=== PATIENT | male | born 1995 | race Caucasian/White ===

== ENCOUNTER 2016-07-27 00:54 | Emergency (ER) | payer BC, SELFPAY ==
[2016-07-27 01:05] VITALS: BP 137/89
--- NOTE | 2016-07-27 01:21 | EDM.PDOC ---
ED HPI GENERAL MEDICAL PROBLEM - General Chief Complaint: Drug or Alcohol Abuse Stated Complaint: INTOXICATED Time Seen by Provider: 07/27/16 01:19 - History of Present Illness INITIAL COMMENTS - FREE TEXT/NARRATIVE: 21-year-old male brought in by a friend of his because he's not acting normal. The patient has been drinking he took 2 Xanax and he's been smoking some marijuana this evening. According to the friend the patient has fallen a couple times and bumped his head and he's just not been himself tonight. The patient's friend is concerned about continued drug and alcohol abuse. He's been using cocaine. There is no history of methamphetamine use however the patient is on Adderall and has been taking this as directed. - Related Data Allergies Allergy/AdvReac Type Severity Reaction Status Date / Time No Known Allergies Allergy Verified 07/27/16 01:05 Home Meds: Home Meds Dextroamphetamine/Amphetamine [Adderall 20 mg Tablet] 20 mg PO BID 07/27/16 [ History] Past Medical History Psychiatric History: Reports: ADHD Social & Family History - Family History Family Medical History: Noncontributory - Tobacco Use Smoking Status *Q: Never Smoker Second Hand Smoke Exposure: No - Alcohol Use Days Per Week of Alcohol Use: 5 Number of Drinks Per Day: 10 Total Drinks Per Week: 50 - Recreational Drug Use Recreational Drug Use: Yes Recreational Drug Type: Reports: Marijuana/Hashish ED ROS GENERAL - Review of Systems Review Of Systems: See Below Constitutional: Reports: No Symptoms HEENT: Reports: No Symptoms Respiratory: Reports: No Symptoms Cardiovascular: Reports: No Symptoms GI/Abdominal: Denies: Abdominal Pain, Constipation, Diarrhea, Nausea, Vomiting : Reports: No Symptoms Musculoskeletal: Reports: No Symptoms Skin: Reports: No Symptoms Neurological: Reports: No Symptoms Psychiatric: Reports: No Symptoms. Denies: Hallucinations, Homicidal Ideation, Mood Lability, Suicidal Ideation ED EXAM, GENERAL - Physical Exam Exam: See Below Exam Limited By: No Limitations General Appearance: Alert, Other (He is intoxicated answers questions) Eye Exam: Bilateral Eye: Normal Inspection, PERRL Ears: Normal External Exam, Normal Canal, Hearing Grossly Normal, Normal TMs Nose: Normal Inspection, Normal Mucosa, No Blood Throat/Mouth: Normal Inspection, Normal Lips, Normal Gums, Normal Oropharynx, Normal Voice, No Airway Compromise Head: Atraumatic, Normocephalic Neck: Normal Inspection Respiratory/Chest: No Respiratory Distress, Lungs Clear, Normal Breath Sounds Cardiovascular: Regular Rate, Rhythm, No Edema, No Murmur GI/Abdominal: Normal Bowel Sounds, Soft, Non-Tender, No Organomegaly, No Distention, No Abnormal Bruit, No Mass Psychiatric: Other (Denies suicidal thoughts or intent). No: Anxious, Depressed Mood Course - Vital Signs Last Recorded V/S: Last Vital Signs Temp 36.0 C 07/27/16 01:01 Pulse 102 H 07/27/16 01:01 Resp 14 07/27/16 01:01 BP 137/89 07/27/16 01:01 Pulse Ox 97 07/27/16 01:01 - Orders/Labs/Meds Orders: Active Orders 24 hr Category Date Time Status Head wo Cont [CT] Stat Exams 07/27/16 01:30 Taken Labs: Laboratory Tests 07/27/16 07/27/16 07/27/16 Range/Units 01:24 01:24 01:40 WBC 9.22 H (4.23-9.07) K/mm3 RBC 5.36 (4.63-6.08) M/mm3 Hgb 15.8 (13.7-17.5) gm/L Hct 46.4 (40.1-51.0) % MCV 86.6 (79.0-92.2) fl MCH 29.5 (25.7-32.2) pg MCHC 34.1 (32.2-35.5) g/dl RDW Std Deviation 39.0 (35.1-43.9) fL Plt Count 309 (163-337) K/mm3 MPV 10.2 (9.4-12.3) fl Neutrophils % (Manual) 68 H (40-60) % Band Neutrophils % 0 (0-10) % Lymphocytes % (Manual) 24 (20-40) % Atypical Lymphs % 0 % Monocytes % (Manual) 1 L (2-10) % Eosinophils % (Manual) 6 (0.8-7.0) % Basophils % (Manual) 1 (0.2-1.2) Platelet Estimate Adequate Plt Morphology Comment Normal RBC Morph Comment Normal Sodium (136-145) mEq/L Potassium (3.5-5.1) mEq/L Chloride (98-107) mEq/L Carbon Dioxide (21-32) mEq/L Anion Gap (5-15) BUN (7-18) mg/dL Creatinine (0.7-1.3) mg/dL Est Cr Clr Drug Dosing mL/min Estimated GFR (MDRD) (>60) mL/min BUN/Creatinine Ratio (14-18) Glucose (74-106) mg/dL Calcium (8.5-10.1) mg/dL Total Bilirubin (0.2-1.0) mg/dL AST (15-37) U/L ALT (16-63) U/L Alkaline Phosphatase (46-116) U/L Total Protein (6.4-8.2) g/dl Albumin (3.4-5.0) g/dl Globulin gm/dL Albumin/Globulin Ratio (1-2) Urine Color Yellow (Yellow) Urine Appearance Clear (Clear) Urine pH 6.5 (5.0-8.0) Ur Specific [place] 1.010 (1.005-1.030) Urine Protein Negative (Negative) Urine Glucose (UA) Negative (Negative) Urine Ketones Negative (Negative) Urine Occult Blood Negative (Negative) Urine Nitrite Negative (Negative) Urine Bilirubin Negative (Negative) Urine Urobilinogen 0.2 (0.2-1.0) Ur Leukocyte Esterase Negative (Negative) Urine RBC Not seen (0-5) /hpf Urine WBC 0-5 (0-5) /hpf Ur Epithelial Cells 0-5 (0-5) /hpf Urine Bacteria Not seen (FEW) /hpf Urine Mucus Not seen (FEW) /hpf Urine Opiates Screen Negative (NEGATIVE) Ur Buprenorphine Scrn Negative (NEGATIVE) Ur Oxycodone Screen Negative (NEGATIVE) Urine Methadone Screen Negative (NEGATIVE) Ur Propoxyphene Screen Negative (NEGATIVE) Ur Barbiturates Screen Negative (NEGATIVE) Ur Tricyclics Screen Negative (NEGATIVE) Ur Phencyclidine Scrn Negative (NEGATIVE) Ur Amphetamine Screen Presumptive positive H (NEGATIVE) U Methamphetamines Scrn Negative (NEGATIVE) U Benzodiazepines Scrn Presumptive positive H (NEGATIVE) U Cocaine Metab Screen Presumptive positive H (NEGATIVE) U Marijuana (THC) Screen Presumptive positive H (NEGATIVE) Ethyl Alcohol (0.00) gm% 07/27/16 Range/Units 01:40 WBC (4.23-9.07) K/mm3 RBC (4.63-6.08) M/mm3 Hgb (13.7-17.5) gm/L Hct (40.1-51.0) % MCV (79.0-92.2) fl MCH (25.7-32.2) pg MCHC (32.2-35.5) g/dl RDW Std Deviation (35.1-43.9) fL Plt Count (163-337) K/mm3 MPV (9.4-12.3) fl Neutrophils % (Manual) (40-60) % Band Neutrophils % (0-10) % Lymphocytes % (Manual) (20-40) % Atypical Lymphs % % Monocytes % (Manual) (2-10) % Eosinophils % (Manual) (0.8-7.0) % Basophils % (Manual) (0.2-1.2) Platelet Estimate Plt Morphology Comment RBC Morph Comment Sodium 141 (136-145) mEq/L Potassium 3.6 (3.5-5.1) mEq/L Chloride 104 (98-107) mEq/L Carbon Dioxide 24 (21-32) mEq/L Anion Gap 16.6 H (5-15) BUN 8 (7-18) mg/dL Creatinine 1.1 (0.7-1.3) mg/dL Est Cr Clr Drug Dosing 107.12 mL/min Estimated GFR (MDRD) > 60 (>60) mL/min BUN/Creatinine Ratio 7.3 L (14-18) Glucose 109 H (74-106) mg/dL Calcium 8.9 (8.5-10.1) mg/dL Total Bilirubin 0.5 (0.2-1.0) mg/dL AST 23 (15-37) U/L ALT 30 (16-63) U/L Alkaline Phosphatase 140 H (46-116) U/L Total Protein 7.8 (6.4-8.2) g/dl Albumin 4.0 (3.4-5.0) g/dl Globulin 3.8 gm/dL Albumin/Globulin Ratio 1.1 (1-2) Urine Color (Yellow) Urine Appearance (Clear) Urine pH (5.0-8.0) Ur Specific [place] (1.005-1.030) Urine Protein (Negative) Urine Glucose (UA) (Negative) Urine Ketones (Negative) Urine Occult Blood (Negative) Urine Nitrite (Negative) Urine Bilirubin (Negative) Urine Urobilinogen (0.2-1.0) Ur Leukocyte Esterase (Negative) Urine RBC (0-5) /hpf Urine WBC (0-5) /hpf Ur Epithelial Cells (0-5) /hpf Urine Bacteria (FEW) /hpf Urine Mucus (FEW) /hpf Urine Opiates Screen (NEGATIVE) Ur Buprenorphine Scrn (NEGATIVE) Ur Oxycodone Screen (NEGATIVE) Urine Methadone Screen (NEGATIVE) Ur Propoxyphene Screen (NEGATIVE) Ur Barbiturates Screen (NEGATIVE) Ur Tricyclics Screen (NEGATIVE) Ur Phencyclidine Scrn (NEGATIVE) Ur Amphetamine Screen (NEGATIVE) U Methamphetamines Scrn (NEGATIVE) U Benzodiazepines Scrn (NEGATIVE) U Cocaine Metab Screen (NEGATIVE) U Marijuana (THC) Screen (NEGATIVE) Ethyl Alcohol 0.15 (0.00) gm% Meds: Medications Discontinued Medications Generic Name Dose Route Start Last Admin Trade Name Freq PRN Reason Stop Dose Admin Lactated Ringer's 1,000 mls @ 999 mls/hr 07/27/16 01:33 07/27/16 01:48 Ringers, Lactated IV 07/27/16 02:33 999 mls/hr .BOLUS ONE Administration Ondansetron HCl 4 mg 07/27/16 01:33 07/27/16 01:48 Zofran IVPUSH 07/27/16 01:34 4 mg ONETIME ONE Administration - Re-Assessments/Exams Free Text/Narrative Re-Assessment/Exam: 07/27/16 03:27 The patient was brought in quite intoxicated with a history of bumping his head head CT is unremarkable labs reviewed toxicology is remarkable for positive cocaine and benzos and alcohol he is on amphetamines on a prescription basis at this pain. The patient has a sober friend who can take him home patient will be discharged home as he's done well here in the department. Departure - Departure Time of Disposition: 03:29 Disposition: Home, Self-Care 01 Clinical Impression: Alcohol intoxication, Drug abuse - Discharge Information Instructions: Chemical Dependency, Alcohol Intoxication, [id number] Additional Instructions: Return to the emergency room with any questions or problems. Follow up with Carlos Leal for drug and alcohol problems for [phone] - My Orders Last 24 Hours: My Active Orders 07/27/16 01:30 Head wo Cont [CT] Stat - Assessment/Plan Last 24 Hours: My Active Orders 07/27/16 01:30 Head wo Cont [CT] Stat
[2016-07-27] MEDS ORDERED: Ondansetron 4 MG/2 ML SDV IVPUSH ONE (01:33)
[2016-07-27] MEDS ORDERED: Lactated Ringers 1,000 ML IV ONE (01:33)
--- NOTE | 2016-07-27 10:38 | CT ---
Head CT Technique: Multiple axial sections through the brain were obtained. Intravenous contrast was not utilized. Comparison: No previous intracranial imaging is available. Findings: Ventricles along with basal cisterns and sulci over the convexities are within normal limits for the patient's age. Fat is identified along the interhemispheric falx with focal fat being seen slightly anterior to the pituitary gland. Findings felt to represent incidental lipomas. No other abnormal parenchymal densities are seen. No evidence of intracranial hemorrhage. No midline shift or mass effect is seen. Bone window settings were reviewed which show the visualized sinuses to appear clear. No acute calvarial abnormality is appreciated. Impression: 1. Incidental fatty lesions as described above which are felt compatible with incidental lipomas. 2. No acute intracranial abnormality is identified. Diagnostic code #2 Agree with preliminary report issued by [facility] ([facility] preliminary report dictated on 07/27/16, 3:22 AM Central Time)
== END 2016-07-27 03:40 | disposition home or self-care (01) ==
LOC: JD.ED 00:54
DX: F10.129 Alcohol abuse with intoxication, unspecified (principal); F15.10 Other stimulant abuse, uncomplicated; Y90.5 Blood alcohol level of 100-119 mg/100 ml
CPT/HCPCS: 36415; 70450; 80053; 80306; 81001; 85025; 99284; G0480; J2405; J7120; 96361; 96374